=== PATIENT | male | born 1965 | race Caucasian/White ===

== ENCOUNTER 2023-11-18 18:10 | Inpatient (IN) | payer MEDICAID ==
[~2023-11-18] VITALS: Ht 170.2 cm; Wt 127.0 kg
[2023-11-18] MEDS: NITROGLYCERIN 0.4 MG/TAB BOTTLE SL ONE (18:55)
[2023-11-18 19:06] LABS: BASOPHILS # (AUTO) 0.1 K/uL (0.0-0.2); BASOPHILS % (AUTO) 1.4 % (0.0-2.0); EOSINOPHILS # (AUTO) 0.1 K/uL (0.0-0.7); HEMATOCRIT 37 % (39-51); HEMOGLOBIN 12.3 g/dL (13.5-17.5); LYMPHOCYTES % (AUTO) 31.9 % (20.0-44.0); MEAN CORPUSCULAR HEMOGLOBIN 28 PG (26.0-33.0); MEAN CORPUSCULAR HGB CONC 33 g/dl (31.0-36.0); MEAN CORPUSCULAR VOLUME 85 fL (80-96); MONOCYTES # (AUTO) 0.4 K/uL (0.1-1.30); MONOCYTES % (AUTO) 6.4 % (2.0-12.0); NEUTROPHILS # (AUTO) 3.7 K/uL (1.8-8.9); NEUTROPHILS % (AUTO) 59.3 % (43.0-81.0); PLATELET COUNT (AUTO) 187 K/uL (150-450); RED BLOOD CELL COUNT(AUTO) 4.42 MIL/uL (4.5-6.0); RED CELL DISTRIBUTION WIDTH 14.6 % (11.5-15.0); WHITE BLOOD COUNT (AUTO) 6.2 K/uL (4.3-11.0)
[2023-11-18 19:28] LABS: CALCIUM, SERUM 8.5 mg/dL (8.5-10.1); CARBON DIOXIDE 27 mmol/L (21-32); CHLORIDE 103 mmol/L (98-107); CREATININE 0.8 mg/dL (0.6-1.3); GLUCOSE 207 mg/dL (74-106); POTASSIUM 4.2 mmol/L (3.5-5.1); SODIUM SERUM 138 mmol/L (136-145); UREA NITROGEN, BLOOD 17 mg/dL (7-18)
[2023-11-18 19:40] LABS: ALANINE AMINOTRANSFERASE 20 U/L (12-78); ALKALINE PHOSPHATASE 61 U/L (46-116); ASPARTATE AMINOTRANSFERASE 13 U/L (15-37); BILIRUBIN,DIRECT 0.1 mg/dL (0.0-0.2); BILIRUBIN,TOTAL 0.3 mg/dL (0.2-1.0); NT-PRO BNP 28 pg/mL (0-125); TOTAL PROTEIN, SERUM 6.8 g/dL (6.4-8.2)
[2023-11-18] MEDS ORDERED: ONDANSETRON HCL/PF 4 MG/2 ML VIAL ONE (20:34)
[2023-11-18] MEDS ORDERED: MORPHINE SULFATE INJ 2 MG/ML DISP.SYRIN ONE ×2 (20:34→23:09)
[2023-11-18] MEDS: ONDANSETRON HCL/PF - ER 4 MG/2 ML VIAL IV ONE (20:35)
[2023-11-18] MEDS: MORPHINE SULFATE INJ 2 MG/ML DISP.SYRIN IV ONE ×3 (20:35→23:10)
[2023-11-18] MEDS ORDERED: IV NS 0.9% 250 ML IV ONE (20:43)
[2023-11-18] MEDS ORDERED: IOHEXOL-350 100 ML VIAL IV ONE (20:43)
[2023-11-18] MEDS ORDERED: CT SWABBABLE VALVE TRANS SET 1 EA INFUS.SET MC ONE (20:43)
[2023-11-18] MEDS: ASPIRIN 81 MG TAB.CHEW PO ONE (21:48)
[2023-11-18] MEDS ORDERED: ASPIRIN 81 MG TAB.CHEW ONE (21:48)
[2023-11-19] MEDS ORDERED: ONDANSETRON HCL/PF 4 MG/2 ML VIAL ONE (00:09)
[2023-11-19] MEDS: ONDANSETRON HCL/PF 4 MG/2 ML VIAL IV ONE ×2 (00:13)
[2023-11-19] MEDS ORDERED: MORPHINE SULFATE INJ 2 MG/ML DISP.SYRIN ONE (05:37)
[2023-11-19] MEDS: MORPHINE SULFATE INJ 2 MG/ML DISP.SYRIN IV ONE (05:38)
[2023-11-19] MEDS ORDERED: ACETAMINOPHEN 325 MG TABLET ONE (08:41)
[2023-11-19] MEDS: ACETAMINOPHEN 325 MG TABLET PO ONE (08:43)
[2023-11-19] MEDS: PIPERACILLIN /TAZOBACTAM 3.375 G in IV D5W 50 ML IV ONE (09:00)
[2023-11-19] MEDS ORDERED: ONDANSETRON HCL/PF 4 MG/2 ML VIAL IV PRN (10:30)
[2023-11-19] MEDS ORDERED: ZOLPIDEM TARTRATE 5 MG TABLET PO PRN (10:30)
[2023-11-19] MEDS ORDERED: MORPHINE SULFATE INJ 2 MG/ML DISP.SYRIN SQ PRN (10:30)
[2023-11-19] MEDS ORDERED: HYDROCODONE/APAP 5/325MG TABLET PO PRN (10:30)
[2023-11-19] MEDS ORDERED: ACETAMINOPHEN 325 MG TABLET PO PRN (10:30)
[2023-11-19] MEDS ORDERED: DEXTROSE 50%-WATER 50 ML DISP.SYRIN IV PRN (10:30)
[2023-11-19] MEDS: PANTOPRAZOLE 40 MG VIAL IV SCH (10:56)
[2023-11-19] MEDS: BLOOD SUGAR DIAGNOSTIC 1 EACH STRIP VI SCH (11:13)
[2023-11-19] MEDS ORDERED: CARV6.252 PO (11:47)
[2023-11-19] MEDS ORDERED: LOSA50TA39 PO (11:47)
[2023-11-19] MEDS ORDERED: ASPI-1420 PO (11:47)
[2023-11-19] MEDS ORDERED: [UNRECOGNIZED DRUG - CODE] PO (11:47)
[2023-11-19] MEDS ORDERED: CILO50TA PO (11:47)
[2023-11-19] MEDS ORDERED: TOLT2CAP22 PO (11:47)
[2023-11-19] MEDS ORDERED: INSU100I24 SQ (11:47)
[2023-11-19] MEDS ORDERED: SITA1TAB6 PO (11:47)
[2023-11-19] MEDS: Potassium Chloride 10 MEQ in IV NS 0.9% 1,000 ML IV PRN (11:56)
[2023-11-19] MEDS: INSULIN REGULAR, HUMAN 100 UNIT/ML 3 ML VIAL SQ PRN (17:18)
[2023-11-19] MEDS: FUROSEMIDE 40 MG/4 ML VIAL IV SCH (17:36)
[2023-11-19] MEDS: ASPIRIN EC 81 MG TABLET.DR PO SCH (17:41)
[2023-11-19 20:04] VITALS: BP 131/66; TEMP 98.1; O2SAT 95
[2023-11-19] MEDS: ATORVASTATIN 10 MG TABLET PO SCH (21:13)
[2023-11-20] VITALS (32 sets, daily range): BP systolic 99–171; BP diastolic 49–95; TEMP 97.5–98.4; O2SAT 94–100
[2023-11-20] MEDS: Potassium Chloride 10 MEQ in IV NS 0.9% 1,000 ML IV SCH (00:19)
[2023-11-20 06:46] LABS: BASOPHILS % (AUTO) 0.7 % (0.0-2.0); EOSINOPHILS # (AUTO) 0.1 K/uL (0.0-0.7); EOSINOPHILS % (AUTO) 0.9 % (0.0-6.0); HEMATOCRIT 38 % (39-51); HEMOGLOBIN 12.4 g/dL (13.5-17.5); LYMPHOCYTES # (AUTO) 1.9 K/uL (0.8-4.8); LYMPHOCYTES % (AUTO) 31.4 % (20.0-44.0); MEAN CORPUSCULAR HEMOGLOBIN 28 PG (26.0-33.0); MEAN CORPUSCULAR HGB CONC 32 g/dl (31.0-36.0); MEAN CORPUSCULAR VOLUME 86 fL (80-96); MONOCYTES # (AUTO) 0.4 K/uL (0.1-1.30); MONOCYTES % (AUTO) 6.9 % (2.0-12.0); NEUTROPHILS # (AUTO) 3.6 K/uL (1.8-8.9); NEUTROPHILS % (AUTO) 60.1 % (43.0-81.0); PLATELET COUNT (AUTO) 167 K/uL (150-450); RED BLOOD CELL COUNT(AUTO) 4.48 MIL/uL (4.5-6.0); RED CELL DISTRIBUTION WIDTH 14.6 % (11.5-15.0); WHITE BLOOD COUNT (AUTO) 5.9 K/uL (4.3-11.0)
[2023-11-20 07:51] LABS: BILIRUBIN,TOTAL 0.5 mg/dL (0.2-1.0); CALCIUM, SERUM 8.5 mg/dL (8.5-10.1); CREATININE 0.8 mg/dL (0.6-1.3); POTASSIUM 3.8 mmol/L (3.5-5.1); TOTAL PROTEIN, SERUM 6.7 g/dL (6.4-8.2)
[2023-11-20] MEDS: PANTOPRAZOLE 40 MG TABLET.DR PO SCH (08:58)
[2023-11-20 10:26] LABS: INR 0.97 (0.91-1.10); PROTHROMBIN TIME 10.3 SECS (9.2-11.1)
[2023-11-20] MEDS ORDERED: IV SET PRIMARY PUMP SET 1 EA INFUS.SET MC ONE (10:46)
[2023-11-20] MEDS ORDERED: IV NS 0.9% 1,000 ML ONE (10:46)
[2023-11-20] MEDS ORDERED: IODIXANOL 150 ML IV ONE (10:47)
[2023-11-20] MEDS ORDERED: LIDOCAINE HCL/PF 1% 30 ML SDV ONE ×2 (10:47→10:53)
[2023-11-20] MEDS ORDERED: NITROGLYCERIN IN 5 % DEXTROSE 250 ML IV ONE (10:48)
[2023-11-20] MEDS ORDERED: FENTANYL PF 100MCG/2ML AMPUL ONE (11:52)
[2023-11-20] MEDS ORDERED: HEPARIN SODIUM, PORCINE 5000 UNITS/1 ML VIAL ONE (12:07)
[2023-11-20] MEDS ORDERED: IODIXANOL 320MG/ML 50 ML IV ONE (12:07)
[2023-11-20] MEDS ORDERED: HEPARIN SODIUM, PORCINE 1,000 UNIT/ML VIAL ONE (12:08)
[2023-11-20] MEDS ORDERED: MIDAZOLAM HCL 2 MG/2ML VIAL ONE (12:20)
[2023-11-20] MEDS ORDERED: TICAGRELOR 90 MG TABLET ONE (12:26)
[2023-11-20] MEDS: LISINOPRIL (10MG) 10 MG TABLET PO SCH (13:37)
[2023-11-20] MEDS: TICAGRELOR 90 MG TABLET PO SCH (17:20)
[2023-11-20] MEDS: *INSULIN REGULAR(HUMULIN R)HUM 100 UNIT/ML VIAL SQ PRN (21:31)
[2023-11-21] VITALS (29 sets, daily range): BP systolic 84–153; BP diastolic 43–85; TEMP 97.2–98.3; O2SAT 93–99
[2023-11-21 04:52] LABS: BASOPHILS % (AUTO) 0.7 % (0.0-2.0); EOSINOPHILS # (AUTO) 0.1 K/uL (0.0-0.7); HEMATOCRIT 38 % (39-51); HEMOGLOBIN 12.7 g/dL (13.5-17.5); LYMPHOCYTES # (AUTO) 2.1 K/uL (0.8-4.8); LYMPHOCYTES % (AUTO) 34.3 % (20.0-44.0); MEAN CORPUSCULAR HEMOGLOBIN 28 PG (26.0-33.0); MEAN CORPUSCULAR HGB CONC 34 g/dl (31.0-36.0); MEAN CORPUSCULAR VOLUME 85 fL (80-96); MONOCYTES # (AUTO) 0.5 K/uL (0.1-1.30); MONOCYTES % (AUTO) 7.3 % (2.0-12.0); NEUTROPHILS # (AUTO) 3.5 K/uL (1.8-8.9); NEUTROPHILS % (AUTO) 56.7 % (43.0-81.0); PLATELET COUNT (AUTO) 160 K/uL (150-450); RED BLOOD CELL COUNT(AUTO) 4.49 MIL/uL (4.5-6.0); RED CELL DISTRIBUTION WIDTH 14.3 % (11.5-15.0); WHITE BLOOD COUNT (AUTO) 6.2 K/uL (4.3-11.0)
[2023-11-21 05:13] LABS: ALBUMIN 2.9 g/dL (3.4-5.0); BILIRUBIN,TOTAL 0.7 mg/dL (0.2-1.0); CALCIUM, SERUM 8.9 mg/dL (8.5-10.1); CREATININE 0.8 mg/dL (0.6-1.3); POTASSIUM 3.8 mmol/L (3.5-5.1); TOTAL PROTEIN, SERUM 6.8 g/dL (6.4-8.2)
[2023-11-21] MEDS ORDERED: PANT40TA49 PO (09:46)
[2023-11-21] MEDS ORDERED: TICA90TA PO (09:46)
[2023-11-21] MEDS ORDERED: ATOR80TA PO (09:46)
[2023-11-21] MEDS ORDERED: TAMS-12 PO (09:56)
[2023-11-21 13:10] LABS: HBSAG SCREEN Negative (Negative); HEPATITIS A AB, IgM Negative (Negative); HEPATITIS A AB, TOTAL Positive (Negative); HEPATITIS B CORE AB, IgM Negative (Negative)
[2023-11-21] MEDS ORDERED: ATORVASTATIN 40 MG TABLET PO SCH (22:00)
== END 2023-11-21 14:47 | disposition home or self-care (01) | DRG 175 ==
LOC: ER 18:14 → TELE 11-19 09:03 → ICU 11-20 13:23
PROVIDERS: ADMIT Internal Medicine; ATTEND Internal Medicine
PROC: 027034Z Dilation of Coronary Artery, One Artery with Drug-eluting Intraluminal Device, Percutaneous Approach (ICD-10-PCS; principal; 2023-11-20)
PROC: 4A023N7 Measurement of Cardiac Sampling and Pressure, Left Heart, Percutaneous Approach (ICD-10-PCS; 2023-11-20)
PROC: B211YZZ Fluoroscopy of Multiple Coronary Arteries using Other Contrast (ICD-10-PCS; 2023-11-20)
PROC: B44LZZZ Ultrasonography of Femoral Artery (ICD-10-PCS; 2023-11-20)
DX: I25.110 Atherosclerotic heart disease of native coronary artery with unstable angina pectoris (principal); I31.39 Other pericardial effusion (noninflammatory); K76.0 Fatty (change of) liver, not elsewhere classified; D64.9 Anemia, unspecified; E11.9 Type 2 diabetes mellitus without complications; D18.09 Hemangioma of other sites; E66.9 Obesity, unspecified; E78.5 Hyperlipidemia, unspecified; K80.20 Calculus of gallbladder without cholecystitis without obstruction; Z87.891 Personal history of nicotine dependence; Z83.3 Family history of diabetes mellitus; N40.0 Benign prostatic hyperplasia without lower urinary tract symptoms; K52.9 Noninfective gastroenteritis and colitis, unspecified; Z82.49 Family history of ischemic heart disease and other diseases of the circulatory system; Z20.822 Contact with and (suspected) exposure to COVID-19; Z68.41 Body mass index [BMI] 40.0-44.9, adult; I10 Essential (primary) hypertension
CPT/HCPCS: 36415; 71045-TC; 76705-TC; 80048-TC; 80053-TC; 80061-TC; 80076-TC; 82962-TC; 83690-TC; 83880; 84484-TC; 85025-TC; 85347; 85610-TC; 85652-TC; 86140-TC; 86709-TC; 87040-TC; 93307-TC; 93308-TC; A4223; G0378; J1644; J1815; J1940; J2250; J2270; J2405; J2470; J2543; J3010; J3480; J3490; J7030; J7050; J7060; Q9967